=== PATIENT | female | born 1965 | race Caucasian/White ===

== ENCOUNTER → 2020-06-27 | Outpatient (CLI) | payer BC, OTHER ==
[~2020-06-27] MED LIST: AMLODIPINE BESY10 MG PO; AUGMENTIN 875-1 EACH PO; CLARITIN10 MG PO; CORTISPORIN OTI10 ML EARRT; DEBROX15 ML AU; ECOTRIN81 MG PO; ELIQUIS 5 MG TAB5 MG PO; ELIQUIS5 MG PO; IMDUR ER TAB 3030 MG PO; LOSARTAN-HCTZ1 EACH PO; MULTIVITAMINS1 EAC1 PO; NITROSTAT0.4 MG SL; NORCO 5-325 TA1 EACH PO; NORVASC 5 MG TAB5 MG PO; POTASSIUM PO; PRAVASTATIN SOD10 MG PO; PROTONIX40 MG PO; TOPROL XL50 MG PO; VALSARTAN-HCTZ1 EACH PO; VITAMIN B-121000 MCG PO; VITAMIN D31000 UNI1 PO; ZANAFLEX4 MG PO; ZANTAC 150 MG150 MG PO; ZOFRAN4 MG PO
== END ==
LOC: EXRD 08:46
DX: R79.89 Other specified abnormal findings of blood chemistry (principal); R93.2 Abnormal findings on diagnostic imaging of liver and biliary tract
CPT/HCPCS: 76705

== ENCOUNTER → 2020-07-20 | Outpatient (CLI) | payer BC, OTHER | LOC: EXRD 10:05 | DX: R09.02 Hypoxemia (principal); J90 Pleural effusion, not elsewhere classified; R91.8 Other nonspecific abnormal finding of lung field | CPT/HCPCS: 71046 ==

== ENCOUNTER → 2020-07-26 | Outpatient (CLI) | payer BC, OTHER | LOC: MAMO 09:34 | DX: Z12.31 Encounter for screening mammogram for malignant neoplasm of breast (principal) | CPT/HCPCS: 77063; 77067 ==

== ENCOUNTER → 2020-08-15 | Outpatient (CLI) | payer BC, OTHER | LOC: LAB 08:46 | DX: R09.02 Hypoxemia (principal) | CPT/HCPCS: 36415; 36600; 80076; 82803 ==

== ENCOUNTER → 2020-08-19 | Outpatient (CLI) | payer BC, OTHER | LOC: EXRD 11:50 | DX: J90 Pleural effusion, not elsewhere classified (principal); R91.8 Other nonspecific abnormal finding of lung field | CPT/HCPCS: 71046 ==

== ENCOUNTER → 2020-08-23 | Outpatient (CLI) | payer BC, OTHER | LOC: MAMO 13:56 | DX: I26.99 Other pulmonary embolism without acute cor pulmonale (principal); N64.9 Disorder of breast, unspecified | CPT/HCPCS: 77065 ==

== ENCOUNTER 2020-09-29 08:20 | Day surgery (SDC) | payer BC, OTHER ==
[~2020-09-29] VITALS: Ht 170.2 cm; Wt 110.7 kg
[~2020-09-29 08:20] MED LIST changes: -AMLODIPINE BESY10 MG PO; -LOSARTAN-HCTZ1 EACH PO; -TOPROL XL50 MG PO
[2020-09-29] MEDS ORDERED: AMLODIPINE BESY10 MG PO (09:28)
[2020-09-29] MEDS ORDERED: LOSARTAN-HCTZ1 EACH PO (09:35)
[2020-09-29] MEDS ORDERED: TOPROL XL50 MG PO (09:36)
[2020-09-29 09:37] LABS: HEMOGLOBIN 13.6 gm/dl (12.3-15.3); RED BLOOD COUNT 4.7 M/UL (4.00-5.10); WHITE BLOOD COUNT 4.9 K/UL (4.5-11.0)
[2020-09-29 10:04] LABS: BUN/CREATININE RATIO 13 (0-10)
== END 2020-09-29 16:00 | disposition home or self-care (01) ==
LOC: OR 08:20 → CDU 14:24 → ZOBSOF 14:27 → OR 14:45 → M/S 15:17 → OR 16:00
PROVIDERS: Surgery
PROC: 067C3DZ Dilation of Right Common Iliac Vein with Intraluminal Device, Percutaneous Approach (ICD-10-PCS; 2020-09-29)
PROC: B54DZZ3 Ultrasonography of Bilateral Lower Extremity Veins, Intravascular (ICD-10-PCS; 2020-09-29)
PROC: B549ZZ3 Ultrasonography of Inferior Vena Cava, Intravascular (ICD-10-PCS; 2020-09-29)
PROC: B519ZZZ Fluoroscopy of Inferior Vena Cava (ICD-10-PCS; 2020-09-29)
PROC: B51DZZZ Fluoroscopy of Bilateral Lower Extremity Veins (ICD-10-PCS; 2020-09-29)
PROC: 067D3DZ Dilation of Left Common Iliac Vein with Intraluminal Device, Percutaneous Approach (ICD-10-PCS; principal; 2020-09-29 09:50)
DX: I87.1 Compression of vein (principal); I73.9 Peripheral vascular disease, unspecified; I10 Essential (primary) hypertension; E78.5 Hyperlipidemia, unspecified; E78.00 Pure hypercholesterolemia, unspecified; E66.9 Obesity, unspecified; Z68.38 Body mass index [BMI] 38.0-38.9, adult; Z20.822 Contact with and (suspected) exposure to COVID-19; Z86.718 Personal history of other venous thrombosis and embolism; Z79.82 Long term (current) use of aspirin; Z82.49 Family history of ischemic heart disease and other diseases of the circulatory system; Z79.899 Other long term (current) drug therapy
CPT/HCPCS: 36415; 71045; 75822; 80053; 81001; 85025; 85610; 86850; 86900; 86901; 93005; C1753; C1769; C1876; C1894; J0690; J1644; J2001; J2704; J2710; J2720; J3010; J7030; J7040; J7050; J7120; Q9962; U0002

== ENCOUNTER → 2020-11-14 | Outpatient (CLI) | payer BC, OTHER ==
[~2020-11-14] MED LIST changes: +AMLODIPINE BESY10 MG PO; +LOSARTAN-HCTZ1 EACH PO; +TOPROL XL50 MG PO
== END ==
LOC: HEART 5 10:40
DX: I82.409 Acute embolism and thrombosis of unspecified deep veins of unspecified lower extremity (principal)
CPT/HCPCS: 93970

== ENCOUNTER → 2020-12-28 | Outpatient (CLI) | payer BC, OTHER | LOC: KOH-I 16:28 | DX: M51.36 Other intervertebral disc degeneration, lumbar region (principal) | CPT/HCPCS: 72100 ==

== ENCOUNTER → 2021-05-17 | Outpatient (CLI) | payer BC, OTHER | LOC: EXRD 08:07 | DX: K76.0 Fatty (change of) liver, not elsewhere classified (principal); J96.21 Acute and chronic respiratory failure with hypoxia; Z79.01 Long term (current) use of anticoagulants | CPT/HCPCS: 76705 ==

== ENCOUNTER → 2021-07-14 | Outpatient (CLI) | payer BC, OTHER | LOC: EXRD 14:43 | DX: I73.9 Peripheral vascular disease, unspecified (principal) | CPT/HCPCS: 93970 ==

== ENCOUNTER → 2021-08-10 | Outpatient (CLI) | payer BC, OTHER | LOC: LAB 09:16 | DX: K76.0 Fatty (change of) liver, not elsewhere classified (principal) | CPT/HCPCS: 36415; 80076 ==

== ENCOUNTER → 2021-08-23 | Outpatient (CLI) | payer BC, OTHER | LOC: KOH-I 16:09 | DX: M51.36 Other intervertebral disc degeneration, lumbar region (principal) | CPT/HCPCS: 72100 ==

== ENCOUNTER → 2021-11-01 | Outpatient (CLI) | payer BC, OTHER | LOC: HEART 5 09:53 | DX: R42 Dizziness and giddiness (principal); R00.2 Palpitations; R06.02 Shortness of breath ==

== ENCOUNTER → 2021-11-03 | Outpatient (CLI) | payer BC, OTHER | LOC: LAB 08:55 | DX: I26.99 Other pulmonary embolism without acute cor pulmonale (principal); J96.21 Acute and chronic respiratory failure with hypoxia; Z12.31 Encounter for screening mammogram for malignant neoplasm of breast; Z79.01 Long term (current) use of anticoagulants | CPT/HCPCS: 36415; 85379 ==

== ENCOUNTER → 2022-03-20 | Day surgery (SDC) | payer OTHER ==
[~2022-03-20] MED LIST changes: +ALLERGY RELIEF5 MG PO; +BUSPIRONE HCL15 MG PO; +DINO-LIFE1 EAC1 PO; +GABAPENTIN400 MG PO; +GLUCOPHAGE 500500 MG PO; +IBU600 MG PO; +LASIX20 MG PO; +LISINOPRIL5 MG PO; +OXYBUTYNIN CHLO10 MG PO; +PEPCID20 MG PO; +POTASSIUM99 M3 PO; +PROTONIX 40 MG40 M1 PO; +SINGULAIR10 MG PO; +VITAMIN B COMP1 EACH PO; +VITAMIN E PO; +ZOFRAN 4 MG TAB4 MG PO; +ZYLOPRIM 100 M100 MG PO
== END | disposition home or self-care (01) ==
LOC: OR 07:06
DX: K31.7 Polyp of stomach and duodenum (principal); K57.30 Diverticulosis of large intestine without perforation or abscess without bleeding; K64.8 Other hemorrhoids; K31.9 Disease of stomach and duodenum, unspecified; K22.89 Other specified disease of esophagus; K21.9 Gastro-esophageal reflux disease without esophagitis; K76.0 Fatty (change of) liver, not elsewhere classified; I10 Essential (primary) hypertension; E78.00 Pure hypercholesterolemia, unspecified; E66.01 Morbid (severe) obesity due to excess calories; Z68.39 Body mass index [BMI] 39.0-39.9, adult; Z79.01 Long term (current) use of anticoagulants; Z79.899 Other long term (current) drug therapy
CPT/HCPCS: 82962; J2704; J7040

== ENCOUNTER → 2022-03-22 | Outpatient (CLI) | payer OTHER | LOC: ECHO 03-07 08:30 → HEART 5 11:30 | DX: R07.9 Chest pain, unspecified (principal); R06.02 Shortness of breath; R13.10 Dysphagia, unspecified; E04.2 Nontoxic multinodular goiter | CPT/HCPCS: 76536; 93306 ==